=== PATIENT | female | born 1950 | race Caucasian/White ===

== ENCOUNTER 2019-08-14 13:35 | Outpatient (CLI) | payer MEDICARE, MEDICAID ==
[2019-08-14 16:49] LABS: BASOPHILS % (AUTO) 0.3 %; EOSINOPHILS # (AUTO) 0.1 10^3/uL (0.0-0.7); EOSINOPHILS % (AUTO) 1.8 %; HGB - HEMOGLOBIN 11.9 g/dL (12.0-16.0); LYMPHOCYTES # (AUTO) 2.6 10^3/uL (1.5-3.5); LYMPHOCYTES % (AUTO) 35.9 %; MEAN CORPUSCULAR HEMOGLOBIN 29.8 pg (27.0-31.0); MEAN CORPUSCULAR HGB CONC 32.4 g/dL (32.0-36.0); MEAN CORPUSCULAR VOLUME 91.8 fL (81.0-99.0); MEAN PLATELET VOLUME 11.4 fL (7.9-10.8); MONOCYTES # (AUTO) 0.5 10^3/uL (0.0-1.0); MONOCYTES % (AUTO) 7.3 %; NEUTROPHILS % (AUTO) 54.4 %; PLT - PLATELET COUNT 266 10^3/uL (130-450); RED CELL DISTRIBUTION WIDTH 14.6 % (12.0-15.0); WHITE BLOOD COUNT 7.4 x10^3/uL (4.8-10.8)
[2019-08-14 17:10] LABS: ALBUMIN 4.1 g/dL (3.2-5.5); ALBUMIN/GLOBULIN RATIO 1.3 (1.0-2.2); ALKALINE PHOSPHATASE 64 IU/L (42-121); ALT ALANINE AMINOTRANSFERASE 16 IU/L (10-60); AST ASPARTATE AMINOTRANSFERASE 17 IU/L (10-42); BILIRUBIN,TOTAL 0.6 mg/dL (0.2-1.0); BUN - BLOOD UREA NITROGEN 12 mg/dL (6-20); CALCIUM 9.3 mg/dL (8.5-10.3); CARBON DIOXIDE - CO2 27 mmol/L (21-32); CHLORIDE 107 mmol/L (101-111); CHOL/HDL RATIO 3.5 (<4.4); CHOLESTEROL 177 mg/dL; CREATININE 0.7 mg/dL (0.4-1.0); GLUCOSE 88 mg/dL (70-100); HDL CHOLESTEROL 50 mg/dL; LDL CHOLESTEROL,CALCULATED 108 mg/dL; LDL/HDL RATIO 2.2 (<4.4); SODIUM 140 mmol/L (135-145); TOTAL PROTEIN 7.2 g/dL (6.7-8.2); VLDL CHOLESTEROL 19 mg/dL
== END 2019-08-14 23:59 | disposition home or self-care (01) ==
LOC: LAB.WCP 13:35
PROVIDERS: ATTEND Family Medicine
DX: Z00.00 Encounter for general adult medical examination without abnormal findings (principal); I10 Essential (primary) hypertension
CPT/HCPCS: 36415; 80053; 80061; 83721; 84443; 85025

== ENCOUNTER 2019-09-22 14:56 | Outpatient (CLI) | payer MEDICARE, MEDICAID ==
--- NOTE | 2019-09-23 11:49 | XRAY Report ---
Reason: NECK AND BACK SHOULDER JOINT PAIN RIGHT,KNEE PAIN Procedure Date: 09/22/2019 Accession Number: [id number] / [id number] Procedure: XR - Knee 3 View LT CPT Code: Final Report FULL RESULT: EXAM: LEFT KNEE RADIOGRAPHY 3 VIEWS EXAM DATE: 09/22/2019. CLINICAL HISTORY: Right knee pain. COMPARISON: None. TECHNIQUE: AP, lateral and sunrise views. FINDINGS: Bones: No fracture or bone lesion. 6 mm secondary ossification center at the superior margin of the patella. Joints: Mild medial narrowing and spurring. No subluxation. No effusion. Soft Tissues: Normal. No soft tissue swelling. IMPRESSION: Mild medial degenerative joint disease. Otherwise normal examination. [facility]
--- NOTE | 2019-09-23 11:52 | XRAY Report ---
Reason: NECK AND BACK PAIN,SHOULDER JOINT PAIN RIGHT,KNEE Procedure Date: 09/22/2019 Accession Number: [id number] / [id number] Procedure: XR - Shoulder 2 View RT CPT Code: Final Report FULL RESULT: EXAM: RIGHT SHOULDER RADIOGRAPHY 2 VIEWS EXAM DATE: 09/22/2019. CLINICAL HISTORY: Right shoulder pain. COMPARISON: None. TECHNIQUE: AP and scapular Y views. FINDINGS: Bones: Normal. No fracture or bone lesion. Joints: No subluxation. Narrowing and spurring of the acromioclavicular joint. Soft tissues: No calcifications. Visualized right lung is clear. Other: Partially visualized is a lower cervical fusion. IMPRESSION: Degenerative changes of the acromioclavicular joint. Otherwise normal examination. [facility]
--- NOTE | 2019-09-23 11:54 | XRAY Report ---
Reason: NECK AND BACK PAIN,SHOULDER JOINT PAIN RIGHT,KNEE Procedure Date: 09/22/2019 Accession Number: [id number] / [id number] Procedure: XR - Thoracic Spine 2 View CPT Code: Final Report FULL RESULT: EXAM: THORACIC SPINE RADIOGRAPHY 3 VIEWS EXAM DATE: 09/22/2019 04:14 PM. CLINICAL HISTORY: Neck and back pain. COMPARISON: None. TECHNIQUE: AP, lateral and swimmer's lateral views. FINDINGS: Alignment: Minimal upper thoracic levoconvex scoliosis, 8 degrees and midthoracic dextroconvex scoliosis, 6 degrees. Bones: No fractures or bone lesions. Disks: Minimal disk narrowing and small vertebral body osteophytes of the mid thoracic spine. Soft Tissues: Included lungs are clear. Cholecystectomy clips in the right upper abdomen. Other: Anterior fusion from C4-C6. IMPRESSION: Mild scoliosis. Minimal mid thoracic degenerative disk disease and spondylosis. Status post C4-C7 anterior fusion. [facility]
--- NOTE | 2019-09-23 11:57 | XRAY Report ---
Reason: NECK AND BACK PAIN Procedure Date: 09/22/2019 Accession Number: [id number] / [id number] Procedure: XR - Cervical Spine 2 View CPT Code: Final Report FULL RESULT: EXAM: CERVICAL SPINE RADIOGRAPHY 3 VIEWS EXAM DATE: 09/22/2019. CLINICAL HISTORY: Neck and back pain. COMPARISONS: None. TECHNIQUE: AP, AP odontoid and lateral views. FINDINGS: Alignment: Normal. No spondylolisthesis or scoliosis. Bones: The cervical vertebral bodies and posterior elements are well visualized from the skull base through C7-T1. No fractures or bone lesions. Anterior fusion from C4-C6 with an anterior plate attached with anterior to posterior screws in the vertebral bodies. Mild elongation of the C7 transverse processes, extending slightly lateral to the T1 transverse processes bilaterally. Disks: Prostheses at C4-C5 and C5-C6. Mild narrowing and spurring at C3-C4 and C7-T1, moderate narrowing and spurring at C6-C7. Facets: No degenerative disease visible. Soft Tissues: Normal prevertebral soft tissue thickness. The lung apices appear clear. IMPRESSION: Status post ACDF from C4-C7. C3-C4, C6-C7 and C7 1 degenerative disk disease and spondylosis. Mild elongation of the C7 transverse processes. [facility]
== END 2019-09-22 14:57 | disposition home or self-care (01) ==
LOC: DI 14:56
PROVIDERS: ATTEND Family Medicine
DX: M17.12 Unilateral primary osteoarthritis, left knee (principal); M19.011 Primary osteoarthritis, right shoulder; M41.84 Other forms of scoliosis, thoracic region; M51.34 Other intervertebral disc degeneration, thoracic region; M47.814 Spondylosis without myelopathy or radiculopathy, thoracic region; M50.31 Other cervical disc degeneration, high cervical region; Z98.1 Arthrodesis status
CPT/HCPCS: 72040; 72070